=== PATIENT | male | born 1955 | race Caucasian/White ===

== ENCOUNTER → 2019-11-04 13:47 | Outpatient (CLI) | payer BC ==
[2014-10-28 08:12] VITALS: BMI 36.9
[~2019-11-04 13:47] MED LIST: ASPIRIN 81 MG E81 MG PO; FISH OIL 1,0001 CA1 PO; GLIMEPIRIDE1 MG PO; GLUCOPHAGE500 MG PO; LISINOPRIL10 MG PO; MULTI-DAY VITAM1 TAB PO; PERCOCET 10/3251 TA1 PO; PRILOSEC20 MG PO; WELLBUTRIN XL150 M1 PO; ZOFRAN4 MG PO; ZYLOPRIM300 MG PO
== END | disposition home or self-care (01) ==
LOC: D.MRI 13:47
PROVIDERS: ATTEND Family Medicine
DX: R42 Dizziness and giddiness (principal)